=== PATIENT | female | born 1980 | race Caucasian/White ===

== ENCOUNTER 2017-07-26 13:39 | Emergency (ER) | payer SELFPAY ==
[2017-07-26 13:57] VITALS: TEMP 98.4
--- NOTE | 2017-07-26 14:18 | CPEKG ---
Heart Rate: 62 RR Interval: 968 P-R Interval: 140 QRSD Interval: 80 QT Interval: 408 QTC Interval: 415 P [place]: 62 QRS [place]: 71 T Wave [place]: 61 EKG Severity - NORMAL ECG - EKG Impression: SINUS RHYTHM Electronically Signed By: Samuel Renner 26-Jul-2017 15:12:14
[2017-07-26] MEDS ORDERED: IBUPROFEN 600 MG TAB PO ONE (15:00)
[2017-07-26 15:12] LABS: % IMMATURE GRANULYOCYTES 0.2 % (0.0-1.1); ABSOLUTE IMMATURE GRANULOCYTES 0.02 10^3/uL (0.00-0.10); ADD DIFF? NO; ADD MORPH? NO; ADD SCAN? NO; ATYPICAL LYMPHOCYTE FLAG 0 (0-99); FRAGMENT RBC FLAG 0 (0-99); HEMATOCRIT 44.5 % (38.0-47.0); HEMOGLOBIN 15.5 g/dL (12.6-16.3); LEFT SHIFT FLG 0 (0-99); LIPEMIA HEMOLYSIS FLAG 90 (0-99); MEAN CELL HEMOGLOBIN CONCENTR. 34.8 g/dL (32.4-36.7); MEAN CELL VOLUME 86.2 fL (81.5-99.8); MEAN PLATELET VOLUME 10.5 fL (8.7-11.7); PLATELET CLUMPS FLAG 0 (0-99); PLATELET COUNT 289 10^3/uL (150-400); RED BLOOD CELL COUNT 5.16 10^6/uL (4.18-5.33); RED CELL DISTRIBUTION WIDTH 12.5 % (11.5-15.2)
[2017-07-26 15:22] LABS: ANION GAP 15 mEq/L (8-16); CALCIUM 10.5 mg/dL (8.5-10.4); CARBON DIOXIDE 20 mEq/l (22-31); CHLORIDE 107 mEq/L (97-110); CREATININE 0.8 mg/dL (0.6-1.0); GLOMERULAR FILTRATION RATE > 60; GLUCOSE 90 mg/dL (70-100); POTASSIUM 4.2 mEq/L (3.5-5.2); SODIUM 142 mEq/L (134-144)
--- NOTE | 2017-07-26 15:27 | EDPHY ---
H & P Time Seen by Provider: 07/26/17 15:26 HPI/ROS: Chief complaint. Heart racing HPI. 36-year-old female presents emergency department with complaint of heart pounding and racing today. She felt pins and needles in her hands and felt that her hands were alondra. She had a blacking out episode. She feels short of breath. She feels fatigued. Her palms have been dripping sweat unusually for 1 week though the heart racing and pounding started this afternoon. No fever cough. She has tightness in her left chest. Hurts to take a deep breath. Nausea without any abdominal pain. No recent travel or unusual leg pain or swelling. No similar symptoms previously. ROS Constitutional. Fatigue Eyes. no problems with vision ENT. no sore throat, no nasal drainage Cardiovascular. Left chest tightness Respiratory. Slight shortness of breath without cough Abdominal. no abdominal pain, no nausea/vomiting, no diarrhea . no problems urinating MS. no calf pain/swelling, no neck/back pain, no joint pain Skin. no rash Lymph. no swollen glands Neuro. Syncope and paresthesias Past Medical/Surgical History: Heart murmur, Family history father had an CT at age 60 Social History: , nonsmoker, no alcohol Smoking Status: Former smoker Physical Exam: General Appearance: Alert pleasant well-developed female mild distress vital signs are stable Eyes: Pupils equal and round no pallor or injection. ENT, Mouth: Mucous membranes are moist. Respiratory: There are no retractions, lungs are clear to auscultation. Cardiovascular: Regular rate and rhythm. Gastrointestinal: Abdomen is soft and nontender, no masses, bowel sounds normal. Neurological: Awake and alert, sensory and motor exams grossly normal. Skin: Warm and dry, no rashes. Musculoskeletal: Neck is supple nontender. Extremities symmetrical, full range of motion. Psychiatric: Patient is oriented X 3, there is no agitation. Constitutional: Initial Vital Signs Temperature (C) 36.9 C 07/26/17 13:53 Heart Rate 76 07/26/17 13:53 Respiratory Rate 26 H 07/26/17 13:53 Blood Pressure 124/96 H 07/26/17 13:53 O2 Sat (%) 100 07/26/17 13:53 O2 Delivery Mode Room Air Allergies/Adverse Reactions: No Known Allergies Allergy (Unverified 07/26/17 13:52) Home Medications: Medication Instructions Recorded LORazepam [Ativan] 1 mg PO Q6-8PRN PRN #10 tab 07/26/17 Medical Decision Making - Diagnostics EKG Interpretation: EKG interpreted by me shows normal sinus rhythm normal interval axis QRS. There is no significant ST elevation or depression. There is no arrhythmia. The rate is 62. Imaging Results: Imaging Impressions Chest X-Ray 07/26/17 15:51 Impression: Clear lungs. No pneumonia or pneumothorax. Chest x-ray reviewed by me is normal Procedures: IV normal saline, monitor. Zofran for nausea. Ativan IV. ED Course/Re-evaluation: Re-evaluation 5:40 p.m.. Patient is stable. She and I discussed imaging lab EKG results. We discussed treatment plan including criteria for return importance of follow-up further evaluation. She expresses understanding and agreement Feeling better but still slight chest tightness. No shortness of breath Troponin will be repeated 2nd troponin Is normal. Re-evaluation 6:50 p.m.. Patient is stable. Differential Diagnosis: I considered pneumonia, pulmonary embolus, acute coronary syndrome, hyperthyroidism. This may be stress anxiety and hyperventilation. - Data Points Laboratory Results: Laboratory Results 07/26/17 14:45 07/26/17 14:45 07/26/17 07/26/17 07/26/17 17:56 15:52 15:05 WBC RBC Hgb Hct MCV MCH MCHC RDW Plt Count MPV Neut % (Auto) Lymph % (Auto) [place]itchie % (Auto) Eos % (Auto) Baso % (Auto) Nucleat RBC Rel Count Absolute Neuts (auto) Absolute Lymphs (auto) Absolute Monos (auto) Absolute Eos (auto) Absolute Basos (auto) Absolute Nucleated RBC Immature Gran % Immature Gran # D-Dimer 0.36 ug/mLFEU ug/mLFEU (0.00-0.50) Sodium Potassium Chloride Carbon Dioxide Anion Gap BUN Creatinine Estimated GFR Glucose Calcium Troponin I < 0.012 ng/mL ng/mL < 0.012 ng/mL ng/mL (0.000-0.034) (0.000-0.034) TSH 1.300 uIU/mL uIU/mL (0.465-4.680) Beta HCG, Qual 07/26/17 07/26/17 07/26/17 14:45 14:45 14:45 WBC 10.75 10^3/uL H 10^3/uL (3.80-9.50) RBC 5.16 10^6/uL 10^6/uL (4.18-5.33) Hgb 15.5 g/dL g/dL (12.6-16.3) Hct 44.5 % % (38.0-47.0) MCV 86.2 fL fL (81.5-99.8) MCH 30.0 pg pg (27.9-34.1) MCHC 34.8 g/dL g/dL (32.4-36.7) RDW 12.5 % % (11.5-15.2) Plt Count 289 10^3/uL 10^3/uL (150-400) MPV 10.5 fL fL (8.7-11.7) Neut % (Auto) 60.6 % % (39.3-74.2) Lymph % (Auto) 29.1 % % (15.0-45.0) Ritchie % (Auto) 8.4 % % (4.5-13.0) Eos % (Auto) 1.2 % % (0.6-7.6) Baso % (Auto) 0.5 % % (0.3-1.7) Nucleat RBC Rel Count 0.0 % % (0.0-0.2) Absolute Neuts (auto) 6.52 10^3/uL H 10^3/uL (1.70-6.50) Absolute Lymphs (auto) 3.13 10^3/uL H 10^3/uL (1.00-3.00) Absolute Monos (auto) 0.90 10^3/uL H 10^3/uL (0.30-0.80) Absolute Eos (auto) 0.13 10^3/uL 10^3/uL (0.03-0.40) Absolute Basos (auto) 0.05 10^3/uL 10^3/uL (0.02-0.10) Absolute Nucleated RBC 0.00 10^3/uL 10^3/uL (0-0.01) Immature Gran % 0.2 % % (0.0-1.1) Immature Gran # 0.02 10^3/uL 10^3/uL (0.00-0.10) D-Dimer Sodium 142 mEq/L mEq/L (134-144) Potassium 4.2 mEq/L mEq/L (3.5-5.2) Chloride 107 mEq/L mEq/L (97-110) Carbon Dioxide 20 mEq/l L mEq/l (22-31) Anion Gap 15 mEq/L mEq/L (8-16) BUN 13 mg/dL mg/dL (7-23) Creatinine 0.8 mg/dL mg/dL (0.6-1.0) Estimated GFR > 60 Glucose 90 mg/dL mg/dL (70-100) Calcium 10.5 mg/dL H mg/dL (8.5-10.4) Troponin I TSH Beta HCG, Qual NEGATIVE Medications Given: Discontinued Medications Sodium Chloride (Ns) 1,000 mls @ 0 mls/hr IV ONCE ONE; Wide Open PRN Reason: Protocol Stop: 07/26/17 15:52 Last Admin: 07/26/17 16:29 Dose: 1,000 mls Ibuprofen (Motrin) 600 mg PO EDNOW ONE Stop: 07/26/17 15:01 Last Admin: 07/26/17 15:02 Dose: 600 mg Lorazepam (Ativan Injection) 0.5 mg IVP EDNOW ONE Stop: 07/26/17 15:52 Last Admin: 07/26/17 16:29 Dose: 0.5 mg Ondansetron HCl (Zofran) 4 mg IVP EDNOW ONE Stop: 07/26/17 15:52 Last Admin: 07/26/17 16:29 Dose: 4 mg Departure - Departure Disposition: Home, Routine, Self-Care Clinical Impression: Chest pain Qualifiers: Chest pain type: unspecified Qualified Code(s): R07.9 - Chest pain, unspecified Condition: Good Instructions: Chest Pain (ED) Additional Instructions: Easy activity. Ativan 1 pill every 6-8 hours for stress anxiety. Return for worsening breathing, chest discomfort. Recheck in 1 day for continuing symptoms. Call Cardiology tomorrow to arrange follow-up appointment. Referrals: NONE *PRIMARY CARE P,. [Primary Care Provider] - As per Instructions Delgado Ruiz MD [Medical Doctor] - 2-3 days without fail Prescriptions: LORazepam [Ativan] 1 mg PO Q6-8PRN PRN #10 tab PRN Reason: Anxiety
[2017-07-26 15:36] VITALS: RESP 16
[2017-07-26] MEDS ORDERED: ONDANSETRON 4 MG/2 ML VIAL IVP ONE (15:51)
[2017-07-26] MEDS ORDERED: NS 1,000 ML IV ONE (15:51)
[2017-07-26] MEDS ORDERED: LORazepam 2 MG/ML INJ IVP ONE (15:51)
[2017-07-26 16:23] LABS: TROPONIN I < 0.012 ng/mL (0.000-0.034)
[2017-07-26 19:09] VITALS: BP 113/81; PULSE 80; O2SAT 94
== END 2017-07-26 19:08 | disposition home or self-care (01) ==
DX: R07.9 Chest pain, unspecified (principal); E86.9 Volume depletion, unspecified; Z87.891 Personal history of nicotine dependence
CPT/HCPCS: 96374; J2060; J2405

== ENCOUNTER 2017-12-25 08:51 | Emergency (ER) | payer MEDICAID ==
--- NOTE | 2017-12-25 09:21 | EDPHY ---
H & P Stated Complaint: back/abd pain - Personal History LMP (Females 10-55): Over 28 Days Ago Current Tetanus/Diphtheria Vaccine: Yes Current Tetanus Diphtheria and Acellular Pertussis (TDAP): Yes - Medical/Surgical History Hx Asthma: No Hx Chronic Respiratory Disease: No Hx Diabetes: No Hx Cardiac Disease: No Hx Renal Disease: No Hx Cirrhosis: No Hx Alcoholism: No Hx HIV/AIDS: No Hx Splenectomy or Spleen Trauma: No Other PMH: herat murmer, , - Social History Smoking Status: Former smoker Time Seen by Provider: 12/25/17 09:06 HPI/ROS: CHIEF COMPLAINT: Multiple complaints x1 week HISTORY OF PRESENT ILLNESS: 37-year-old female generally healthy went to recommend urgent care this morning for 1 week symptoms of subjective fever, chills, abdominal cramping, diarrhea, adenopathy. She was referred to the ER for evaluation. Time I evaluate interview her states that she is asymptomatic with no back pain, no abdominal pain. She has been able tolerate oral intake although notes that after a few bites of any food she will develop nausea and abdominal distension. Denies: Dysuria, hematuria, increased frequency, lower extremity radiculopathy, footdrop, saddle anesthesia, incontinence, retention, PRIMARY CARE PROVIDER: None REVIEW OF SYSTEMS: A ten point review of systems was performed and is negative with the exception of the items mentioned in the HPI PAST MEDICAL & SURGICAL HISTORY: x1. IUD in place. SOCIAL HISTORY:Nonsmoker, no IV drug use. PHYSICAL EXAM (Prior to examination, patient consented to physical exam, hands were washed and my usual and customary physical exam procedures followed) 1) GENERAL: Well-developed, well-nourished, alert and oriented. Appears to be in no acute distress. Smiling, shakes my hand appears well. 2) HEAD: Normocephalic, atraumatic 3) HEENT: Pupils equal, round, reactive to light bilaterally. Sclera anicteric. Nasopharynx, oropharynx, clear, no lesions. Moist mucous membrane 4) NECK: Full range of motion, no meningeal signs. No cervical adenopathy 5) LUNGS: Clear auscultation bilaterally, no wheezes, no rhonchi, no retractions. 6) HEART: Regular rate and rhythm, no murmur, no heave, no gallop. 7) ABDOMEN: No guarding, no rebound, no focal tenderness, negative McBurney's, negative Yu's, negative Rovsing's, negative peritoneal sign, unable to elicit any abdominal pain. No inguinal adenopathy. 8) MUSCULOSKELETAL: Moving all extremities, no focal areas of tenderness, no obvious trauma. No peripheral edema or discoloration. 9) BACK: No CVA tenderness, no midline vertebral tenderness, no fluctuance, no step-off, no obvious trauma, no visual or palpable abnormality. Patella,, Achilles reflexes intact equal bilaterally strength 5/5. 10) SKIN: No rash, no petechiae. 11) Psychiatric: Patient is oriented X 3, there is no agitation. DIFFERENTIAL DIAGNOSIS: My differential diagnosis includes, but is not limited to, acute appendicitis, gastritis, acute cholecystitis, bowel obstruction, acute pancreatitis,, ectopic , gastritis and urinary tract infection, cauda equina, spinal infectious etiology. (Rubin Gonzalez) Constitutional: Initial Vital Signs Temperature (C) 36.8 C 12/25/17 08:55 Heart Rate 69 12/25/17 08:55 Respiratory Rate 16 12/25/17 08:55 Blood Pressure 125/85 H 12/25/17 08:55 O2 Sat (%) 97 12/25/17 08:55 O2 Delivery Mode Room Air Allergies/Adverse Reactions: No Known Allergies Allergy (Unverified 12/25/17 08:54) Home Medications: Medication Instructions Recorded Fluconazole [Diflucan (*)] 150 mg PO ONCE #1 tab 12/25/17 Nexplanon 12/25/17 levOFLOXACIN [levAQUIN (*)] 750 mg PO DAILY #7 tab 12/25/17 Medical Decision Making - Diagnostics Imaging Results: Imaging Impressions Abdomen CT 12/25/17 10:01 Impression: 1. Benign 1.4 cm cyst in the left lobe of the liver. 2. No CT evidence of appendicitis, abscess or bowel obstruction. 3. Otherwise normal CT abdomen and pelvis. Findings and recommendations discussed with Emergency Department physicianRubin PA-C at 1144 hour, 12/25/2017. Final report concurs with initial preliminary interpretation. Images reviewed myself (Carlos,D Alesia) ED Course/Re-evaluation: I did not see this patient while she was in the emergency department. However her care was discussed with the PA while the patient was in the department. I agree with treatment plan and management (Smauel Renner) 9:20 a.m.: Will obtain diagnostic studies. Patient currently appears well and is asymptomatic. Care of patient under supervision of secondary supervising physician Dr Samuel Renner. Patient was re-evaluated with serial examinations. I informed the patient that I think her symptoms are more likely secondary to acute pyelonephritis given her positive CVA tenderness, positive pyuria. She did request CT of her abdomen pelvis which was ordered and discussed with her. Doubt acute surgical abdominal pathology such as acute appendicitis. Doubt ectopic . Doubt urosepsis. Plan will be initiation with Levaquin antibiotics, follow up. Definitely if the patient develops new or worsening symptoms to return to the ER immediately. She feels comfortable being discharged. Usual and customary discharge precautions and instructions provided. (Rubin Gonzalez) - Data Points Laboratory Results: Laboratory Results 12/25/17 09:05 12/25/17 09:05 12/25/17 12/25/17 12/25/17 09:05 09:05 09:05 WBC RBC Hgb Hct MCV MCH MCHC RDW Plt Count MPV Neut % (Auto) Lymph % (Auto) [place] % (Auto) Eos % (Auto) Baso % (Auto) Nucleat RBC Rel Count Absolute Neuts (auto) Absolute Lymphs (auto) Absolute Monos (auto) Absolute Eos (auto) Absolute Basos (auto) Absolute Nucleated RBC Immature Gran % Immature Gran # Sodium 145 mEq/L mEq/L (135-145) Potassium 4.4 mEq/L mEq/L (3.3-5.0) Chloride 106 mEq/L mEq/L (97-110) Carbon Dioxide 24 mEq/l mEq/l (22-31) Anion Gap 15 mEq/L mEq/L (8-16) BUN 10 mg/dL mg/dL (7-23) Creatinine 0.8 mg/dL mg/dL (0.6-1.0) Estimated GFR > 60 Glucose 92 mg/dL mg/dL (70-100) Calcium 9.4 mg/dL mg/dL (8.5-10.4) Total Bilirubin 0.9 mg/dL mg/dL (0.1-1.4) Conjugated Bilirubin 0.4 mg/dL mg/dL (0.0-0.5) Unconjugated Bilirubin 0.5 mg/dL mg/dL (0.0-1.1) AST 18 IU/L IU/L (14-46) ALT 25 IU/L IU/L (9-52) Alkaline Phosphatase 58 IU/L IU/L (38-126) Total Protein 7.9 g/dL g/dL (6.3-8.2) Albumin 4.7 g/dL g/dL (3.5-5.0) Lipase 121 IU/L IU/L (23-300) Beta HCG, Qual NEGATIVE Urine Color YELLOW Urine Appearance MODERATELY TURBID Urine pH 7.0 (5.0-7.5) Ur Specific [place] 1.017 (1.002-1.030) Urine Protein NEGATIVE (NEGATIVE) Urine Ketones NEGATIVE (NEGATIVE) Urine Blood NEGATIVE (NEGATIVE) Urine Nitrate POSITIVE H (NEGATIVE) Urine Bilirubin NEGATIVE (NEGATIVE) Urine Urobilinogen NEGATIVE EU EU (0.2-1.0) Ur Leukocyte Esterase NEGATIVE (NEGATIVE) Urine RBC 3-5 /hpf H /hpf (0-3) Urine WBC 5-10 /hpf H /hpf (0-3) Ur Epithelial Cells 1+ /lpf /lpf (NONE-1+) Urine Bacteria 1+ /hpf H /hpf (NONE SEEN) Urine Mucus 1+ /lpf /lpf (NONE-1+) Urine Glucose NEGATIVE (NEGATIVE) 12/25/17 09:05 WBC 9.21 10^3/uL 10^3/uL (3.80-9.50) RBC 5.38 10^6/uL H 10^6/uL (4.18-5.33) Hgb 15.9 g/dL g/dL (12.6-16.3) Hct 47.2 % H % (38.0-47.0) MCV 87.7 fL fL (81.5-99.8) MCH 29.6 pg pg (27.9-34.1) MCHC 33.7 g/dL g/dL (32.4-36.7) RDW 13.8 % % (11.5-15.2) Plt Count 333 10^3/uL 10^3/uL (150-400) MPV 10.0 fL fL (8.7-11.7) Neut % (Auto) 60.6 % % (39.3-74.2) Lymph % (Auto) 30.1 % % (15.0-45.0) [place] % (Auto) 6.9 % % (4.5-13.0) Eos % (Auto) 1.7 % % (0.6-7.6) Baso % (Auto) 0.4 % % (0.3-1.7) Nucleat RBC Rel Count 0.0 % % (0.0-0.2) Absolute Neuts (auto) 5.57 10^3/uL 10^3/uL (1.70-6.50) Absolute Lymphs (auto) 2.77 10^3/uL 10^3/uL (1.00-3.00) Absolute Monos (auto) 0.64 10^3/uL 10^3/uL (0.30-0.80) Absolute Eos (auto) 0.16 10^3/uL 10^3/uL (0.03-0.40) Absolute Basos (auto) 0.04 10^3/uL 10^3/uL (0.02-0.10) Absolute Nucleated RBC 0.00 10^3/uL 10^3/uL (0-0.01) Immature Gran % 0.3 % % (0.0-1.1) Immature Gran # 0.03 10^3/uL 10^3/uL (0.00-0.10) Sodium Potassium Chloride Carbon Dioxide Anion Gap BUN Creatinine Estimated GFR Glucose Calcium Total Bilirubin Conjugated Bilirubin Unconjugated Bilirubin AST ALT Alkaline Phosphatase Total Protein Albumin Lipase Beta HCG, Qual Urine Color Urine Appearance Urine pH Ur Specific [place] Urine Protein Urine Ketones Urine Blood Urine Nitrate Urine Bilirubin Urine Urobilinogen Ur Leukocyte Esterase Urine RBC Urine WBC Ur Epithelial Cells Urine Bacteria Urine Mucus Urine Glucose Medications Given: Discontinued Medications Levofloxacin (Levaquin) 750 mg PO EDNOW ONE PRN Reason: Protocol Stop: 12/25/17 12:29 Last Admin: 12/25/17 12:34 Dose: 750 mg Departure - Departure Disposition: Home, Routine, Self-Care Clinical Impression: Pyelonephritis Condition: Good Instructions: Fluconazole (By mouth), Levofloxacin (By mouth), Kidney Infection (ED), Flank Pain (ED) Referrals: [facility],. [Clinic] - As per Instructions Prescriptions: Fluconazole [Diflucan (*)] 150 mg PO ONCE #1 tab levOFLOXACIN [levAQUIN (*)] 750 mg PO DAILY #7 tab
[2017-12-25 09:25] LABS: PLATELET COUNT 333 10^3/uL (150-400)
[2017-12-25] MEDS ORDERED: IOPAMIDOL (ISOVUE-300) 100 ML BTL ONE (10:52)
[2017-12-25 12:42] VITALS: BP 112/88
== END 2017-12-25 12:41 | disposition home or self-care (01) ==
DX: N10 Acute pyelonephritis (principal); B96.20 Unspecified Escherichia coli [E. coli] as the cause of diseases classified elsewhere; Z87.891 Personal history of nicotine dependence
CPT/HCPCS: Q9967